=== PATIENT | female | born 1995 | race Caucasian/White ===

== ENCOUNTER 2024-08-07 14:40 | Emergency (ER) | payer MEDICAID, SELFPAY ==
[2024-08-07 14:58] VITALS: BP 156/71; PULSE 70; RESP 20; TEMP 36.9; O2SAT 98; BMI 28.3
--- NOTE | 2024-08-07 15:06 | PD.EDRME ---
Rapid Medical Screening Exam RME Arrival date/time: 08/07/24 14:40 29-year-old female presents emergency department complains of nausea vomiting abdominal pain Chief Complaint: Nausea/Vomiting/Diarrhea Time Seen by Provider: 08/07/24 14:46 Vital signs: Vital Signs Temperature 98.4 F 08/07/24 14:58 Pulse Rate 70 08/07/24 14:58 Respiratory Rate 20 08/07/24 14:58 Blood Pressure 156/71 H 08/07/24 14:58 Pulse Oximetry (%) 98 08/07/24 14:58 Oxygen Delivery Method Room Air 08/07/24 14:58
[2024-08-07] MEDS: PROMETHAZINE INJ 25 MG/ML VIAL IM (15:11)
[2024-08-07 15:24] LABS: Basophils # (Auto) 0.1 Thou/mm3 (0.0-0.2); Basophils % (Auto) 0 % (0-2.5); Eosinophils # (Auto) 0.1 Thou/mm3 (0.0-0.5); Eosinophils % (Auto) 0 % (0-10); Hematocrit 48.6 % (36.0-46.0); Immature Granulocytes % (Auto) 1 % (0-0); Immature Granulocytes Auto 0.11 Thou/mm3 (0.00-0.00); Lymphocytes # (Auto) 1.6 Thou/mm3 (1.0-4.8); Lymphocytes % (Auto) 7 % (10-50); Mean Corpuscular Hemoglobin 29.3 pg (25.0-35.0); Mean Corpuscular Volume 84 fL (80-100); Monocytes # (Auto) 0.4 Thou/mm3 (0.0-0.8); Monocytes % (Auto) 2 % (0-12); Neutrophils % (Auto) 90 % (37-80); Nucleated Red Blood Cell % 0 /100 WBC (0); Platelet Count 473 Thou/mm3 (140-440); RDW Standard Deviation 41.6 fL (36.4-46.3); White Blood Count 22.2 Thou/mm3 (3.6-11.0)
[2024-08-07 15:45] LABS: Alanine Aminotransferase 12 U/L (10-49); Albumin/Globulin Ratio 1.6 (1.2-2.2); Alkaline Phosphatase 102 U/L (46-116); Anion Gap 12 (7-16); Aspartate Amino Transferase 17 U/L (0-34); BUN/Creatinine Ratio 18 Ratio (12-20); Blood Urea Nitrogen 18 mg/dL (9-23); Calcium 10.3 mg/dL (8.3-10.6); Calcium (Corrected) 10.3 mg/dL (8.5-10.1); Chloride 106 mMol/L (98-107); Globulin 3.2 gm/dL (2.3-3.5); Glucose 184 mg/dL (74-106); Lipase 26 U/L (12-53); Osmolality,Calculated 284 (275-295); Sodium 139 mMol/L (136-145); Total Protein 8.2 gm/dL (5.7-8.2); eGFR > 60 See Note
--- NOTE | 2024-09-26 18:21 | PD.EDADULT ---
ED General RME/HPI General Chief complaint: Nausea/Vomiting/Diarrhea Stated complaint: Vomiting today, neck pain, fever Time Seen by Provider: 08/07/24 14:46 Arrival date/time: 08/07/24 14:40 RME / HPI RME / HPI narrative: 08/07/24 14:40 29-year-old female presents emergency department complains of nausea vomiting abdominal pain Related Data Home Medications ?Medication ?Instructions ?Recorded ?Confirmed quetiapine 50 mg tablet,extended 50 mg PO DAILY 03/09/21 03/09/21 release 24 hr Previous Rx's ?Medication ?Instructions ?Recorded pantoprazole 40 mg tablet,delayed 40 mg PO QDAY #14 tabs 12/16/22 release (Protonix) ibuprofen 600 mg tablet 600 mg PO Q6H #30 tabs 03/17/24 famotidine 10 mg tablet 10 mg PO QDAY #30 tabs 03/23/24 ondansetron 4 mg disintegrating 4 mg PO Q8H #14 tabs 03/23/24 tablet metoclopramide HCl 10 mg tablet 10 mg PO Q6H PRN nausea and 05/01/24 (Reglan) vomiting #30 tabs promethazine 12.5 mg rectal 12.5 mg ND Q8HR PRN nausea and 05/03/24 suppository vomiting #12 ea aluminum-mag hydroxide-simethicone 10 ml PO QID PRN Gastritis #3,000 08/08/24 200 mg-200 mg-20 mg/5 mL oral susp mL (Advanced Antacid-Antigas) famotidine 20 mg tablet (Pepcid) 20 mg PO BID Gastritis #10 tabs 08/08/24 promethazine 25 mg rectal 25 mg ND Q6H PRN nausea and 08/08/24 suppository vomiting #12 ea hydrocodone 5 mg-acetaminophen 325 1 tab PO BID PRN pain #6 tabs 09/23/24 mg tablet ibuprofen 600 mg tablet 600 mg PO Q6H #30 tabs 09/23/24 metoclopramide HCl 5 mg tablet 5 mg PO Q8H PRN nausea and 11/08/24 (Reglan) vomiting #14 tabs ondansetron 4 mg disintegrating 4 mg PO Q8H PRN nausea and 11/08/24 tablet vomiting #14 tabs promethazine 25 mg tablet 25 mg PO Q6H PRN nausea and 11/08/24 vomiting #14 tabs Allergies Allergy/AdvReac Type Severity Reaction Status Date / Time No Known Allergies Allergy Verified 09/23/24 10:04 Course Orders Category Date Time Status CBC Stat Lab 08/07/24 15:16 Completed Comprehensive Metabolic Panel Stat Lab 08/07/24 15:16 Completed Lipase Stat Lab 08/07/24 15:16 Completed Promethazine Inj [Phenergan Inj] Med 08/07/24 15:05 Discontinued 25 mg IM X1 ONE Vital Signs Vital signs: Vital Signs Temperature 98.4 F 08/07/24 14:58 Pulse Rate 70 08/07/24 14:58 Respiratory Rate 20 08/07/24 14:58 Blood Pressure 156/71 H 08/07/24 14:58 Pulse Oximetry (%) 98 08/07/24 14:58 Oxygen Delivery Method Room Air 08/07/24 14:58 MDM Medications Medication administrations:: Medication Administration History Discontinued Medications Promethazine HCl (Promethazine Inj 25 Mg/Ml Vial) 25 mg IM X1 ONE; Protocol Stop: 08/07/24 15:06 Last Admin: 08/07/24 15:11 Dose: 25 mg Documented By: DARSHAN Medical Decision Making Lab Data 08/07/24 15:16 08/07/24 15:16 Labs: Lab Results 08/07/24 Range/Units 15:16 WBC 22.2 H (3.6-11.0) Thou/mm3 RBC 5.80 H (4.00-5.20) Miln/mm3 Hgb 17.0 H (12.0-16.0) g/dL Hct 48.6 H (36.0-46.0) % MCV 84 (80-100) fL MCH 29.3 (25.0-35.0) pg MCHC 35.0 (31.0-37.0) g/dl RDW Std Deviation 41.6 (36.4-46.3) fL Plt Count 473 H (140-440) Thou/mm3 Neut % (Auto) 90 H (37-80) % Lymph % (Auto) 7 L (10-50) % [place] % (Auto) 2 (0-12) % Eos % (Auto) 0 (0-10) % Baso % (Auto) 0 (0-2.5) % Neut # (Auto) 20.0 H (1.8-7.7) Thou/mm3 Lymph # (Auto) 1.6 (1.0-4.8) Thou/mm3 [place] # (Auto) 0.4 (0.0-0.8) Thou/mm3 Eos # (Auto) 0.1 (0.0-0.5) Thou/mm3 Baso # (Auto) 0.1 (0.0-0.2) Thou/mm3 Immature Gran # (Auto) 0.11 H (0.00-0.00) Thou/mm3 Absolute Nucleated RBC 0.00 (0.00-0.00) Thou/mm3 Immature Gran % 1 H (0-0) % Nucleated RBC % 0 (0) /100 WBC Sodium 139 (136-145) mMol/L Potassium 4.0 (3.4-5.1) mMol/L Chloride 106 (98-107) mMol/L Carbon Dioxide 21.0 (20.0-31.0) mMol/L Anion Gap 12 (7-16) BUN 18 (9-23) mg/dL Creatinine 1.0 (0.6-1.3) mg/dL Estim Creat Clear Calc 80.0 (>60) mL/min eGFR > 60 (60 - ) See Note BUN/Creatinine Ratio 18 (12-20) Ratio Glucose 184 H (74-106) mg/dL Calculated Osmolality 284 (275-295) Calcium 10.3 (8.3-10.6) mg/dL Corrected Calcium 10.3 H (8.5-10.1) mg/dL Total Bilirubin 1.0 (0.3-1.2) mg/dL AST 17 (0-34) U/L ALT 12 (10-49) U/L Alkaline Phosphatase 102 (46-116) U/L Total Protein 8.2 (5.7-8.2) gm/dL Albumin 5.0 (3.5-5.0) gm/dL Globulin 3.2 (2.3-3.5) gm/dL Albumin/Globulin Ratio 1.6 (1.2-2.2) Lipase 26 (12-53) U/L Discharge Plan Plan Patient Disposition: HOME (Self Care) Prescriptions/Referrals Prescriptions/Med Rec: No Action quetiapine 50 mg tablet extended release 24 hr 50 mg PO DAILY Patient Comments: TAKE 1 TABLET BY MOUTH EVERY DAY IN THE EVENING metoclopramide HCl [Reglan] 5 mg tablet 5 mg PO Q8H PRN (Reason: nausea and vomiting) Qty: 14 0RF ondansetron 4 mg tablet,disintegrating 4 mg PO Q8H PRN (Reason: nausea and vomiting) Qty: 14 0RF promethazine 25 mg tablet 25 mg PO Q6H PRN (Reason: nausea and vomiting) Qty: 14 0RF pantoprazole [Protonix] 40 mg tablet,delayed release (DR/EC) 40 mg PO QDAY Qty: 14 0RF ibuprofen 600 mg tablet 600 mg PO Q6H Qty: 30 0RF famotidine 10 mg tablet 10 mg PO QDAY Qty: 30 0RF ondansetron 4 mg tablet,disintegrating 4 mg PO Q8H Qty: 14 0RF metoclopramide HCl [Reglan] 10 mg tablet 10 mg PO Q6H PRN (Reason: nausea and vomiting) Qty: 30 0RF promethazine 12.5 mg suppository 12.5 mg ND Q8HR PRN (Reason: nausea and vomiting) Qty: 12 0RF famotidine [Pepcid] 20 mg tablet 20 mg PO BID Qty: 10 0RF alum-mag hydroxide-simeth [Advanced Antacid-Antigas] 200-200-20 mg/5 mL suspension 10 ml PO QID PRN (Reason: Gastritis) Qty: 3000 0RF Rx Instructions: administer between meals and at bedtime promethazine 25 mg suppository 25 mg ND Q6H PRN (Reason: nausea and vomiting) Qty: 12 0RF hydrocodone-acetaminophen 5-325 mg tablet 1 tab PO BID MDD 10 PRN (Reason: pain) Qty: 6 0RF ibuprofen 600 mg tablet 600 mg PO Q6H Qty: 30 0RF Referrals: Sameer Maddox MD [Primary Care Provider] - In 1 week Patient/Caregiver Discharge Instructions Print Language: Welsh Stand Alone Forms: Tereza Award Info., Patient Portal Info Letter Discharge Intervention Interventions: Discharge Assessment Last Done: 08/07/24 16:35 Discharge Date/Time Discharge Date/Time: 08/07/24 16:35
== END 2024-08-07 16:35 | disposition home or self-care (01) ==
PROVIDERS: Nurse Practitioner Primary Care; Emergency Provider Emergency Medicine; PCP Family Medicine
DX: R11.2 Nausea with vomiting, unspecified (principal)
CPT/HCPCS: 36415; 80053; 80307; 81001; 81025; 83690; 85025; 96372; 99283; J2550

== ENCOUNTER 2024-08-08 06:47 | Emergency (ER) | payer MEDICAID, SELFPAY ==
[2024-08-08 06:48] VITALS: BMI 28.3
--- NOTE | 2024-08-08 06:52 | PD.EDRME ---
Rapid Medical Screening Exam RME Arrival date/time: 08/08/24 06:47 29-year-old female presents emergency department complaints of nausea vomiting abdominal pain Chief Complaint: Abdominal Pain
[2024-08-08 07:07] VITALS: BP 138/89; PULSE 71; RESP 19; TEMP 36.4; O2SAT 97
[2024-08-08] MEDS: PROMETHAZINE INJ 25 MG/ML VIAL IM (07:30)
[2024-08-08 08:01] LABS: Collection Type, Urine Clean Catch
[2024-08-08 08:05] LABS: Basophils % (Auto) 0 % (0-2.5); Eosinophils # (Auto) 0.1 Thou/mm3 (0.0-0.5); Eosinophils % (Auto) 0 % (0-10); Hemoglobin 16.6 g/dL (12.0-16.0); Immature Granulocytes % (Auto) 1 % (0-0); Immature Granulocytes Auto 0.14 Thou/mm3 (0.00-0.00); Lymphocytes # (Auto) 2.5 Thou/mm3 (1.0-4.8); Lymphocytes % (Auto) 12 % (10-50); Mean Corpuscular HGB Conc 35.3 g/dl (31.0-37.0); Mean Corpuscular Hemoglobin 29.3 pg (25.0-35.0); Mean Corpuscular Volume 83 fL (80-100); Monocytes # (Auto) 0.9 Thou/mm3 (0.0-0.8); Monocytes % (Auto) 5 % (0-12); Neutrophils # (Auto) 16.5 Thou/mm3 (1.8-7.7); Neutrophils % (Auto) 82 % (37-80); Nucleated Red Blood Cell % 0 /100 WBC (0); Platelet Count 484 Thou/mm3 (140-440); RDW Standard Deviation 41.5 fL (36.4-46.3); Red Blood Count 5.67 Miln/mm3 (4.00-5.20); White Blood Count 20.1 Thou/mm3 (3.6-11.0)
[2024-08-08 08:22] LABS: Amorphous Crystals,Urine Present (Absent); Bilirubin,Urine Negative (Negative); Blood,Urine 2+ (Negative); Clarity,Urine Turbid (Clear/Hazy); Color,Urine Yellow (Lt Yel-Yel); Culture Indicated,Urine Not Indicated; Glucose, Urine Negative (Negative); Ketones,Urine 1+ (Negative); Leukocyte Esterase,Urine Negative (Negative); Nitrite,Urine Negative (Negative); Protein,Urine 1+ (Neg - Trace); RBC,Urine 4 /hpf (0-3); Specific Gravity,Urine 1.031 (1.001-1.035); Squamous Epithelial Cell,Urine 8 /hpf (0-5); Urobilinogen,Urine Negative mg/dL (0.0-1.0); WBC,Urine 2 /hpf (0-5)
[2024-08-08 08:26] LABS: HCG Qualitative,Urine Negative
[2024-08-08 08:28] LABS: Alanine Aminotransferase 10 U/L (10-49); Albumin, Serum 5.3 gm/dL (3.5-5.0); Albumin/Globulin Ratio 1.7 (1.2-2.2); Alkaline Phosphatase 96 U/L (46-116); Anion Gap 11 (7-16); Aspartate Amino Transferase 18 U/L (0-34); BUN/Creatinine Ratio 17 Ratio (12-20); Bilirubin,Total 0.7 mg/dL (0.3-1.2); Blood Urea Nitrogen 17 mg/dL (9-23); Calcium 9.7 mg/dL (8.3-10.6); Calcium (Corrected) 9.7 mg/dL (8.5-10.1); Carbon Dioxide 25.6 mMol/L (20.0-31.0); Chloride 100 mMol/L (98-107); Globulin 3.2 gm/dL (2.3-3.5); Glucose 119 mg/dL (74-106); Lipase 29 U/L (12-53); Osmolality,Calculated 276 (275-295); Potassium 3.1 mMol/L (3.4-5.1); Sodium 137 mMol/L (136-145); Total Protein 8.5 gm/dL (5.7-8.2); eGFR > 60 See Note
[2024-08-08 08:29] LABS: Amphetamine/Methamp Scrn,U Negative (Negative); Barbiturate Screen,Urine Negative (Negative); Benzodiazepines Screen,Urine Negative (Negative); Benzoylecgonine Screen, Ur Negative (Negative); Fentanyl Screen,Urine Negative (Negative); Opiate Screen,Urine Positive (Negative); THC Screen,Urine Positive (Negative)
[2024-08-08 09:00] LABS: HCG,Qualitative Serum Negative
[2024-08-08] MEDS: SODIUM CHLORIDE 0.9% 1000 ML 1,000 ML 999 ML IV (09:54)
[2024-08-08 10:48] VITALS: BP 118/63; PULSE 80; RESP 16; TEMP 36.7; O2SAT 98
--- NOTE | 2024-08-08 10:55 | EDNOTE_ITS ---
ED Abdominal Pain RME/HPI General Chief Complaint: Abdominal Pain Stated complaint: I HAVE GASTRITIS FLARE UP Arrival date/time: 08/08/24 06:47 Limitations: no limitations RME / HPI RME / HPI narrative: 08/08/24 06:47 29-year-old female presents emergency department complaints of nausea vomiting abdominal pain DR. MEHRDAD MARTINEZ ED EVALUATION: 29 year old female with history of gastritis, H.pylori (treated 6 months ago), chronic pain on Methadone presents to the ED for my gastritis is flaring up . States the pain is mostly in the epigastric region, described as aching in sensation, rating as moderate-severe. Accompanied by nausea and vomiting. States at home pain is minimally improved with hot compresses, hot showers/baths, otherwise no other known modifying factors. Reportedly had been evaluated here twice before for similar pain and previously diagnosed with gastritis. Denies fevers, chills, chest pain, cough, diarrhea, constipation, or urinary symptoms. Patient additionally mentioned she has had increase in stress recently and unsure if that is contributing to her symptoms today. Patient admits to smoking marijuana daily x10 years. Related Data Home Medications ?Medication ?Instructions ?Recorded ?Confirmed quetiapine 50 mg tablet,extended 50 mg PO DAILY 03/09/21 03/09/21 release 24 hr Previous Rx's ?Medication ?Instructions ?Recorded pantoprazole 40 mg tablet,delayed 40 mg PO QDAY #14 tabs 12/16/22 release (Protonix) ibuprofen 600 mg tablet 600 mg PO Q6H #30 tabs 03/17/24 famotidine 10 mg tablet 10 mg PO QDAY #30 tabs 03/23/24 ondansetron 4 mg disintegrating 4 mg PO Q8H #14 tabs 03/23/24 tablet metoclopramide HCl 10 mg tablet 10 mg PO Q6H PRN nausea and 05/01/24 (Reglan) vomiting #30 tabs promethazine 12.5 mg rectal 12.5 mg [place] Q8HR PRN nausea and 05/03/24 suppository vomiting #12 ea aluminum-mag hydroxide-simethicone 10 ml PO QID PRN Gastritis #3,000 08/08/24 200 mg-200 mg-20 mg/5 mL oral susp mL (Advanced Antacid-Antigas) famotidine 20 mg tablet (Pepcid) 20 mg PO BID Gastritis #10 tabs 08/08/24 promethazine 25 mg rectal 25 mg [place] Q6H PRN nausea and 08/08/24 suppository vomiting #12 ea sucralfate 1 gram tablet (Carafate) 1 g PO BID Gastritis 10 days #20 08/08/24 tabs Allergies Allergy/AdvReac Type Severity Reaction Status Date / Time No Known Allergies Allergy Verified 08/08/24 06:50 Review of Systems Review of Systems Narrative Review of Systems: GEN: No fever, no chills, no weight loss EYES: No discharge, no visual changes, no pain HEENT: No ear pain, no congestion, no sore throat PULM: No shortness of breath, no cough, no congestion CV: No chest pain, no dyspnea on exertion, no palpitations GI: +nausea, +vomiting, no diarrhea, +pain, no constipation : No frequency, no urgency, no dysuria MUSC/SKEL: No joint pain, no back pain SKIN: No rash NEURO: No weakness, no headache Past Medical History Past Medical History GENITOURINARY: Positive Genitourinary Disorders MUSCULOSKELETAL: Positive Musculoskeletal Disorders PSYCHO/SOCIAL: Positive Depression, Anxiety and Depression Family History FAMILY HISTORY: Positive Family Psychiatric Problems, Family Respiratory Disorders and Family Cancer Surgical History SURGICAL: Negative Abdominal Surgery Social History SMOKING STATUS: Current every day smoker ED Exam General Limitations: Present no limitations General appearance: Present alert and in no apparent distress Head Head exam: Present atraumatic, normocephalic and normal inspection Eye Eye exam: Present normal appearance, PERRL and EOMI ENT ENT exam: Present normal exam, normal oropharynx and mucous membranes moist Neck Neck exam: Present normal inspection, full ROM and trachea midline Chest Chest inspection: Present normal inspection and symmetric chest wall rise Respiratory Respiratory exam: Present normal lung sounds bilaterally Cardiovascular Cardiovascular exam: Present regular rate, normal rhythm and normal heart sounds Abdominal Exam Abdominal exam: Present soft and normal bowel sounds Extremities Exam Extremities exam: Present normal inspection and full ROM Back Exam Back exam: Present normal inspection and full ROM Neurological Exam Neurological exam: Present alert, oriented X3 and CN II-XII intact Psychiatric Psychiatric exam: Present normal affect and normal mood Skin Skin exam: Present warm, dry, intact and normal color Course Quality Measures none Orders Category Date Time Status CT Screening NOW Care 08/08/24 09:28 Completed Insert IV NOW Care 08/08/24 09:27 Completed CBC Stat Lab 08/08/24 07:35 Completed Comprehensive Metabolic Panel Stat Lab 08/08/24 07:35 Completed Drug Screen,Urine Stat Lab 08/08/24 07:19 Completed HCG Qualitative,Urine Stat Lab 08/08/24 07:19 Completed HCG,Qualitative Serum Stat Lab 08/08/24 07:35 Completed Lipase Stat Lab 08/08/24 07:35 Completed UA, C/S IF [Urinalysis, C/S if Indicated] Stat Lab 08/08/24 07:19 Completed Famotidine Inj [Pepcid Inj] Med 08/08/24 10:27 Discontinued 20 mg IVP X1 ONE Pantoprazole Inj [Protonix Inj] Med 08/08/24 10:27 Discontinued 40 mg IV X1 ONE Promethazine Inj [Phenergan Inj] Med 08/08/24 06:51 Discontinued 25 mg IM X1 ONE Sodium Chloride 0.9% 1000 ml [Ns] 1,000 ml Med 08/08/24 09:27 Discontinued IV 999 mls/hr Sucralfate [Carafate] Med 08/08/24 10:27 Discontinued 1 gm PO X1 ONE mg Hyd/Al Hyd/Balwinder Susp [Maalox Susp] Med 08/08/24 10:27 Discontinued 30 ml PO X1 ONE Reevaluation(s) Reevaluation #1: Patient remains clinically stable throughout the emergency department visit. We reviewed all the results, analysis, and treatment plans. Patient is amenable to discharge. Strict return precautions were outlined. Patient was discharged in stable condition. Time: 10:25 Vital Signs Vital signs: Vital Signs Temperature 97.6 F 08/08/24 07:07 Pulse Rate 71 08/08/24 07:07 Respiratory Rate 19 08/08/24 07:07 Blood Pressure 138/89 H 08/08/24 07:07 Pulse Oximetry (%) 97 08/08/24 07:07 Oxygen Delivery Method Room Air 08/08/24 07:07 Pulse ox is 97% on room air which is adequate. Abdominal Pain MDM MDM Narrative MDM Narrative:: Kristin Hayes am scribing for and in the presence of Dr. Goyal. Patient data External records reviewed:: [facility] [place] previous records (I reviewed ED visit on 05/03/2024) Clinical information provided by:: patient Social determinants that could affect healthcare access:: substance use (Marijuana ) Patient has the following chronic illnesses:: Gastritis H. Pylori 6 months ago How is presenting disease/condition affected by chronic disease/condition?: exacerbated by Evaluation data The following diagnostics were reviewed and interpreted by me:: lab results Lab and/or radiology exams considered but not ordered:: None Interpretation Summary: WBC 21 today, 22 yesterday 08/07/2024 Medications / Prescriptions Medications or Prescriptions considered but not ordered:: None Medication administrations:: Medication Administration History Discontinued Medications Al Hydrox/Mg Hydrox/Simethicone (Mg Hyd/Al Hyd/Balwinder (Maalox Reg) Susp 30 Ml Udc) 30 ml PO X1 ONE Stop: 08/08/24 10:28 Last Admin: 08/08/24 11:35 Dose: 30 ml Documented By: JAKOB Famotidine (Famotidine Inj 10 Mg/Ml Vial 2 Ml) 20 mg IVP X1 ONE Stop: 08/08/24 10:28 Last Admin: 08/08/24 11:34 Dose: 20 mg Documented By: JAKOB Sodium Chloride (Ns) 1,000 mls @ 999 mls/hr IV .Q1H1M ONE Stop: 08/08/24 10:27 Last Infusion: 08/08/24 12:01 Dose: Infused Documented By: Admin: 08/08/24 09:54 Dose: 999 mls/hr Documented By: JAKOB Pantoprazole Sodium (Pantoprazole Inj 40 Mg Vial) 40 mg IV X1 ONE Stop: 08/08/24 10:28 Last Admin: 08/08/24 11:35 Dose: 40 mg Documented By: JAKOB Promethazine HCl (Promethazine Inj 25 Mg/Ml Vial) 25 mg IM X1 ONE; Protocol Stop: 08/08/24 06:52 Last Admin: 08/08/24 07:30 Dose: 25 mg Documented By: DARSHAN Sucralfate (Sucralfate 1 Gm Tablet) 1 gm PO X1 ONE Stop: 08/08/24 10:28 Last Admin: 08/08/24 12:00 Dose: Not Given Documented By: TM Non-Admin Reason: Patient Refused See above Consultations Consultation(s) initiated? (list below): No Diagnosis Differential diagnosis abdominal pain: abdominal pain, gastroenteritis and other (Gastritis) Most likely diagnosis given after review of the tests above:: Gastritis Admission Indicated Admission indicated?: not indicated Admission Request Was there a request for admission?: No Disposition Plan Disposition Plan: Discharge Discharge Attestation Discharge Attestation: The patient and all family members were given an opportunity to ask questions and understood the discharge instructions. Discharge instructions specifically effects, indications for sooner follow up or return to the emergency department, and the expected course of current diagnosis. Patient condition: Stable Discharge Plan Plan Patient Disposition: HOME (Self Care) Disposition Comment: Gastritis Patient condition on transfer: Stable Prescriptions/Referrals Prescriptions/Med Rec: New famotidine [Pepcid] 20 mg tablet 20 mg PO BID Qty: 10 0RF sucralfate [Carafate] 1 gram tablet 1 g PO BID 10 Days Qty: 20 0RF alum-mag hydroxide-simeth [Advanced Antacid-Antigas] 200-200-20 mg/5 mL suspension 10 ml PO QID PRN (Reason: Gastritis) Qty: 3000 0RF Rx Instructions: administer between meals and at bedtime promethazine 25 mg suppository 25 mg [place] Q6H PRN (Reason: nausea and vomiting) Qty: 12 0RF No Action quetiapine 50 mg tablet extended release 24 hr 50 mg PO DAILY Patient Comments: TAKE 1 TABLET BY MOUTH EVERY DAY IN THE EVENING pantoprazole [Protonix] 40 mg tablet,delayed release (DR/EC) 40 mg PO QDAY Qty: 14 0RF ibuprofen 600 mg tablet 600 mg PO Q6H Qty: 30 0RF famotidine 10 mg tablet 10 mg PO QDAY Qty: 30 0RF ondansetron 4 mg tablet,disintegrating 4 mg PO Q8H Qty: 14 0RF metoclopramide HCl [Reglan] 10 mg tablet 10 mg PO Q6H PRN (Reason: nausea and vomiting) Qty: 30 0RF promethazine 12.5 mg suppository 12.5 mg [place] Q8HR PRN (Reason: nausea and vomiting) Qty: 12 0RF Referrals: Sameer Maddox MD [Primary Care Provider] - In 1 week Demar Ross MD [Physician] - In 1 week Problem List Clinical Impression: Gastritis Patient/Caregiver Discharge Instructions Discharge Activity: activity as tolerated Diet Instructions: A gastritis diet involves eating bland, non-acidic foods that are low in sugar, salt, and saturated fat. You should avoid foods that are: spicy, acidic, fried, fatty, processed, caffeinated, sugary, and deep-fried. Here are some foods you can eat on a gastritis diet: Fruits: Bananas are well-tolerated and can soothe the stomach lining. Avoid acidic fruits like shukri, oranges, and pineapple. Vegetables: Cooked vegetables are easier to digest. Lean meats: Chicken and fish are good options. Whole grains: Brown bread, brown rice, and whole grain pasta are all good choices. Dairy: Skim milk and plain yogurt are good options. Herbs and spices: Natural seasonings like garlic, onion, parsley, coriander, and mustard are good options. You should also consider: Avoiding or quitting tobacco use, Avoiding or limiting alcohol intake, Avoiding the long-term use of NSAIDs, and Managing stress. The duration of a gastritis diet depends on the frequency and severity of symptoms, as well as the underlying cause of inflammation. A doctor can provide guidance and recommendations suited to your lifestyle and health. Education Materials: Treating Gastritis, Anatomy of the Digestive System, ED Gastritis (Adult), ED PEPTIC ULCER vs GASTRITIS Additional Instructions: Please follow-up with Dr. Ross within the next week or so. Just call his office and make an appointment. Dr. Ross is a joint machine operator which is a specialist of the stomach. Please return to the ER for any worsening or any further medical problems Otherwise follow-up with your primary care doctor within the next few days Take all medications as directed Print Language: Macedonian Stand Alone Forms: [employer] Award Info., Patient Portal Info Letter
[2024-08-08] MEDS: FAMOTIDINE INJ 10 MG/ML VIAL 2 ML 20 MG IVP (11:34)
[2024-08-08] MEDS: MG HYD/AL HYD/SIME (Maalox Reg) SUSP 30 ML UDC PO (11:35)
[2024-08-08] MEDS: PANTOPRAZOLE INJ 40 MG VIAL IV (11:35)
--- NOTE | 2024-08-08 12:00 | PC.NURSE ---
request med from pharmacy, pt did not want to wait any longer, med was ordered to her pharmacy, pt states she would just rather got get it from her pharmacy, provider aware and in agreement.
== END 2024-08-08 11:59 | disposition home or self-care (01) ==
PROVIDERS: Nurse Practitioner Primary Care; Emergency Provider Emergency Medicine; PCP Family Medicine
DX: K29.70 Gastritis, unspecified, without bleeding (principal)
CPT/HCPCS: 36415; 80053; 80307; 81001; 81025; 83690; 84703; 85025; 96372; 96374; 96375; 99284; J2470; J2550; J3490; J7030; A9270

== ENCOUNTER 2024-09-23 10:02 | Emergency (ER) | payer MEDICAID, SELFPAY ==
[2024-09-23 10:40] VITALS: BP 137/92; PULSE 100; RESP 12; TEMP 36.9; O2SAT 95; BMI 25.4
--- NOTE | 2024-09-23 10:42 | EDNOTE_ITS ---
ED Dental RME/HPI General Chief complaint: Dental/Oral/Throat Stated complaint: ABCESS TO LEFT TEETH x 1 WEEK Time Seen by Provider: 09/23/24 10:04 Arrival date/time: 09/23/24 10:02 29-year-old female presents emergency department today complains of left lower dental pain patient reports recent dental procedure Limitations: no limitations Related Data Home Medications ?Medication ?Instructions ?Recorded ?Confirmed quetiapine 50 mg tablet,extended 50 mg PO DAILY 03/09/21 03/09/21 release 24 hr Previous Rx's ?Medication ?Instructions ?Recorded pantoprazole 40 mg tablet,delayed 40 mg PO QDAY #14 tabs 12/16/22 release (Protonix) ibuprofen 600 mg tablet 600 mg PO Q6H #30 tabs 03/17/24 famotidine 10 mg tablet 10 mg PO QDAY #30 tabs 03/23/24 ondansetron 4 mg disintegrating 4 mg PO Q8H #14 tabs 03/23/24 tablet metoclopramide HCl 10 mg tablet 10 mg PO Q6H PRN nausea and 05/01/24 (Reglan) vomiting #30 tabs promethazine 12.5 mg rectal 12.5 mg [place] Q8HR PRN nausea and 05/03/24 suppository vomiting #12 ea aluminum-mag hydroxide-simethicone 10 ml PO QID PRN Gastritis #3,000 08/08/24 200 mg-200 mg-20 mg/5 mL oral susp mL (Advanced Antacid-Antigas) famotidine 20 mg tablet (Pepcid) 20 mg PO BID Gastritis #10 tabs 08/08/24 promethazine 25 mg rectal 25 mg [place] Q6H PRN nausea and 08/08/24 suppository vomiting #12 ea clindamycin HCl 300 mg capsule 300 mg PO TID 7 days #21 caps 09/23/24 hydrocodone 5 mg-acetaminophen 325 1 tab PO BID PRN pain #6 tabs 09/23/24 mg tablet ibuprofen 600 mg tablet 600 mg PO Q6H #30 tabs 09/23/24 Allergies Allergy/AdvReac Type Severity Reaction Status Date / Time No Known Allergies Allergy Verified 09/23/24 10:04 Review of Systems Review of Systems Systems Reviewed: All systems reviewed, normal except as documented Constitutional Constitutional: Reports system reviewed and no additional complaints, except as documented, Denies fever(s) and Denies headache(s) Eyes Eyes: Reports system reviewed and no additional complaints, except as documented and Denies blurry vision ENT Ears, Nose, Mouth, and Throat: Reports system reviewed and no additional complaints, except as documented, Reports dental pain, Reports facial pain, Denies headache(s), Denies nasal congestion and Denies nasal discharge Cardiovascular Cardiovascular: Reports system reviewed and no additional complaints, except as documented, Denies chest pain and Denies dyspnea Respiratory Respiratory: Reports system reviewed and no additional complaints, except as documented, Denies chest congestion, Denies cough and Denies dyspnea Gastrointestinal Gastrointestinal: Reports system reviewed and no additional complaints, except as documented and Denies abdominal pain Integumentary/Breasts Skin/Breast: Reports system reviewed and no additional complaints, except as documented and Denies rash Neurologic Neurologic: Reports system reviewed and no additional complaints, except as documented, Reports as per HPI and Denies headache(s) Past Medical History Past Medical History NEUROLOGIC: Negative Neurological Disorders CARDIAC: Negative Cardiac Disorders or Congestive Heart Failure RESPIRATORY: Negative Chronic Obstructive Pulmonary Disease (COPD) or Asthma GASTROINTESTINAL: Negative Gastrointestinal Disorders GENITOURINARY: Positive Genitourinary Disorders; Negative Renal Disease REPRODUCTIVE: Negative Breast Cancer MUSCULOSKELETAL: Positive Musculoskeletal Disorders ENDOCRINE: Negative Endocrine Disorders, Diabetes Mellitus Type 1 or Diabetes Mellitus Type 2 HEMATOLOGIC: Negative Blood Disorders or Sickle Cell Disease PSYCHO/SOCIAL: Positive Depression, Anxiety and Depression OTHER HISTORY: Negative Autoimmune Disease, Blood Transfusions, Anesthesia Reactions, Organ Transplant, MRSA, Clostridium Difficile or Breast Cancer Family History FAMILY HISTORY: Positive Family Psychiatric Problems, Family Respiratory Disorders and Family Cancer; Negative Family Cardiac Disorders, Family Gastrointestinal Problems, Family Surgery or Family Anesthesia Reaction Surgical History SURGICAL: Negative Cardiac Surgery, Endocrine Surgery, Ear Surgery, Abdominal Surgery, Nephrectomy, Joint Replacement, Neurologic Surgery, Section or Organ Transplant Social History SMOKING STATUS: Heavy (> 1 pack/day) ED Exam General Limitations: Present no limitations General appearance: Present alert and in no apparent distress Head Head exam: Present atraumatic, normocephalic and normal inspection Eye Eye exam: Present normal appearance, PERRL and EOMI; Absent conjunctival injection ENT ENT exam: Present normal oropharynx, mucous membranes moist and other (Left- sided jaw pain) Neck Neck exam: Present normal inspection, full ROM and trachea midline Chest Chest inspection: Present normal inspection and symmetric chest wall rise Respiratory Respiratory exam: Present normal lung sounds bilaterally Cardiovascular Cardiovascular exam: Present regular rate, normal rhythm and normal heart sounds Abdominal Exam Abdominal exam: Present soft and normal bowel sounds; Absent distention, tenderness, guarding, rebound or rigidity Extremities Exam Extremities exam: Present normal inspection and full ROM Back Exam Back exam: Present normal inspection and full ROM Neurological Exam Neurological exam: Present alert, oriented X3, CN II-XII intact, normal gait and reflexes normal; Absent motor sensory deficit Psychiatric Psychiatric exam: Present normal affect and normal mood Skin Skin exam: Present warm, dry, intact and normal color Course Quality Measures none Orders Category Date Time Status Ibuprofen Tab [Motrin Tab] Med 09/23/24 10:40 Discontinued 600 mg PO X1 ONE Lidocaine 1% 20 ml [Xylocaine 1% 20 ML] Med 09/23/24 10:40 Discontinued 2.1 ml INFL X1 ONE cefTRIAXone [Rocephin] Med 09/23/24 10:40 Discontinued 1,000 mg IM X1 ONE Vital Signs Vital signs: Vital Signs Temperature 98.5 F 09/23/24 10:40 Pulse Rate 100 09/23/24 10:40 Respiratory Rate 12 09/23/24 10:40 Blood Pressure 137/92 H 09/23/24 10:40 Pulse Oximetry (%) 95 09/23/24 10:40 Oxygen Delivery Method Room Air 09/23/24 10:40 O2 saturation 95% room air within normal limits Dental / Oral MDM Narrative MDM Narrative:: 29-year-old female presents emergency department today complains of left lower dental pain patient reports recent dental procedure On exam patient does not appear ill or toxic patient's not appear in acute distress On exam patient does have left lower jaw swelling no difficulty swallowing or breathing Patient given antibiotics here discharged home with antibiotics and pain medication Patient instructed to follow-up with dentist as soon as possible Patient data External records reviewed:: [facility] previous records Clinical information provided by:: patient Social determinants that could affect healthcare access:: none Patient has the following chronic illnesses:: None How is presenting disease/condition affected by chronic disease/condition?: no chronic disease Evaluation data The following diagnostics were reviewed and interpreted by me:: other (specify) (N/A) Lab and/or radiology exams considered but not ordered:: Consider not order Interpretation Summary: N/A Medications / Prescriptions Medications or Prescriptions considered but not ordered:: Given Medication administrations:: Medication Administration History Discontinued Medications Ceftriaxone Sodium (Ceftriaxone Sod Inj 1,000 Mg Vial) 1,000 mg IM X1 ONE Stop: 09/23/24 10:41 Last Admin: 09/23/24 10:52 Dose: 1,000 mg Documented By: DARSHAN Ibuprofen (Ibuprofen Tab 600 Mg Tablet) 600 mg PO X1 ONE Stop: 09/23/24 10:41 Last Admin: 09/23/24 10:50 Dose: 600 mg Documented By: DARSHAN Lidocaine HCl (Lidocaine Hcl 1% 20 Ml Vial) 2.1 ml INFL X1 ONE Stop: 09/23/24 10:41 Last Admin: 09/23/24 10:51 Dose: 2.1 ml Documented By: DARSHAN Given Consultations Consultation(s) initiated? (list below): No Diagnosis Dental Differential Diagnosis: gingival abscess, dental caries, toothache and dental abscess Most likely diagnosis given after review of the tests above:: Dental abscess Admission Indicated Admission indicated?: not indicated Admission Request Was there a request for admission?: No Disposition Plan Disposition Plan: Discharge Discharge Attestation Discharge Attestation: The patient and all family members were given an opportunity to ask questions and understood the discharge instructions. Discharge instructions specifically effects, indications for sooner follow up or return to the emergency department, and the expected course of current diagnosis. Patient condition: Stable Discharge Plan Plan Patient Disposition: HOME (Self Care) Disposition Comment: Stable Prescriptions/Referrals Prescriptions/Med Rec: New clindamycin HCl 300 mg capsule 300 mg PO TID 7 Days Qty: 21 0RF hydrocodone-acetaminophen 5-325 mg tablet 1 tab PO BID MDD 10 PRN (Reason: pain) Qty: 6 0RF ibuprofen 600 mg tablet 600 mg PO Q6H Qty: 30 0RF No Action quetiapine 50 mg tablet extended release 24 hr 50 mg PO DAILY Patient Comments: TAKE 1 TABLET BY MOUTH EVERY DAY IN THE EVENING pantoprazole [Protonix] 40 mg tablet,delayed release (DR/EC) 40 mg PO QDAY Qty: 14 0RF ibuprofen 600 mg tablet 600 mg PO Q6H Qty: 30 0RF famotidine 10 mg tablet 10 mg PO QDAY Qty: 30 0RF ondansetron 4 mg tablet,disintegrating 4 mg PO Q8H Qty: 14 0RF metoclopramide HCl [Reglan] 10 mg tablet 10 mg PO Q6H PRN (Reason: nausea and vomiting) Qty: 30 0RF promethazine 12.5 mg suppository 12.5 mg [place] Q8HR PRN (Reason: nausea and vomiting) Qty: 12 0RF famotidine [Pepcid] 20 mg tablet 20 mg PO BID Qty: 10 0RF alum-mag hydroxide-simeth [Advanced Antacid-Antigas] 200-200-20 mg/5 mL suspension 10 ml PO QID PRN (Reason: Gastritis) Qty: 3000 0RF Rx Instructions: administer between meals and at bedtime promethazine 25 mg suppository 25 mg [place] Q6H PRN (Reason: nausea and vomiting) Qty: 12 0RF Problem List Clinical Impression: Abscess, dental Patient/Caregiver Discharge Instructions Education Materials: ED Tooth Abscess Additional Instructions: Please follow up with your dentist as discussed for worsening symptoms return immediately Print Language: Italian Stand Alone Forms: [employer] Award Info., Patient Portal Info Letter PA/HEEL NAILING 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
[2024-09-23] MEDS: IBUPROFEN TAB 600 MG TABLET PO (10:50)
[2024-09-23] MEDS: LIDOCAINE HCL 1% 20 ML VIAL 2.1 ML INFL (10:51)
[2024-09-23] MEDS: cefTRIAXone SOD INJ 1,000 MG VIAL 1000 MG IM (10:52)
== END 2024-09-23 11:00 | disposition home or self-care (01) ==
LOC: SERX 11:00
PROVIDERS: Emergency Provider Emergency Medicine; PCP Family Medicine
DX: K04.7 Periapical abscess without sinus (principal)
CPT/HCPCS: 96372; 99283; J0696; J3490; A9270

== ENCOUNTER 2024-11-07 17:09 | Emergency (ER) | payer MEDICAID, SELFPAY ==
[2024-11-07] VITALS (12 sets, daily range): BP systolic 94–144; BP diastolic 53–96; PULSE 73–109; RESP 15–22; TEMP 36.6–37.3; O2SAT 92–849; BMI 26.2
[2024-11-07] MEDS: ONDANSETRON INJ 2 MG/ML INJ 2 ML 4 MG IV (18:20)
[2024-11-07] MEDS: LORazepam 2 MG/ML VIAL 1 MG IVP (18:21)
--- NOTE | 2024-11-07 18:26 | EDNOTE_ITS ---
ED General RME/HPI General Chief complaint: Abdominal Pain Stated complaint: ABD PAIN Time Seen by Provider: 11/07/24 18:16 Arrival date/time: 11/07/24 17:09 RME / HPI RME / HPI narrative: Patient is 29 years old female with past medical history of marijuana use disorder, gastritis and chronic pain on methadone presented to the ED complaining of nausea, vomiting and abdominal pain. She reports she started vomiting today morning and was progressively worsening. She also developed epigastric abdominal pain. She smoked marijuana yesterday evening. Patient was previously seen in the ED with similar complaint. She was previously treated for Helicobacter. She reports due to vomiting she was not able to take her home methadone as prescribed. She also reports diarrhea today. She denies any chest pain, shortness of breath, melena or blood per rectum, bloody emesis. Related Data Home Medications ?Medication ?Instructions ?Recorded ?Confirmed quetiapine 50 mg tablet,extended 50 mg PO DAILY 03/09/21 release 24 hr Previous Rx's ?Medication ?Instructions ?Recorded pantoprazole 40 mg tablet,delayed 40 mg PO QDAY #14 ta bs 12/16/22 release (Protonix) ibuprofen 600 mg tablet 600 mg PO Q6H #30 tabs 03/17 famotidine 10 mg tablet 10 mg PO QDAY #30 tabs 03/23 ondansetron 4 mg disintegrating 4 mg PO Q8H #14 tabs 0 03/23/24 tablet metoclopramide HCl 10 mg tablet 10 mg PO Q6H PRN nause a and 05/01/24 (Reglan) vomiting #30 tabs promethazine 12.5 mg rectal 12.5 mg WA Q8HR PRN nausea and 05/03/24 suppository vomiting #12 ea aluminum-mag hydroxide-simethicone 10 ml PO QID PRN Ga stritis #3,000 08/08/24 200 mg-200 mg-20 mg/5 mL oral susp mL (Advanced Antacid-Antigas) famotidine 20 mg tablet (Pepcid) 20 mg PO BID Gastriti s #10 tabs 08/08/24 promethazine 25 mg rectal 25 mg WA Q6H PRN nausea and 08/08/24 suppository vomiting #12 ea hydrocodone 5 mg-acetaminophen 325 1 tab PO BID PRN pa in #6 tabs 01/21/25 mg tablet ibuprofen 600 mg tablet 600 mg PO Q6H #30 tabs 09/23 metoclopramide HCl 5 mg tablet 5 mg PO Q8H PRN nausea and 11/08/24 (Reglan) vomiting #14 tabs ondansetron 4 mg disintegrating 4 mg PO Q8H PRN nausea and 11/08/24 tablet vomiting #14 tabs promethazine 25 mg tablet 25 mg PO Q6H PRN nausea and 11/08/24 vomiting #14 tabs Allergies Allergy/AdvReac Type Severity Reaction Status Date / Time No Known Allergies Allergy Verified 09/23/24 10:04 Review of Systems Review of Systems Systems Reviewed: All systems reviewed, normal except as documented ED Exam Narrative Physical exam: Gen: Well-developed and well-nourished female. HEENT: NCAT, PERRLA, EOMI, MMM, anicteric conjunctivae. CVS: normal S1 and S2. RRR. No M/R/G. Resp: CTA B/L. No rhonchi, rales, crackles or wheezing. Abd: soft, tender in epigastrium, non-distended. BS+ in all 4 quadrants. MSK: Good ROM in BUE & BLE. No edema or rash. Neuro: CN II-XII grossly intact. Strength 5/5 in BUE & BLE. Alert and oriented x3. Psych: Severely anxious. Course Quality Measures none Orders Category Date Time Status EKG (ED ONLY) *Do not use* NOW Care 11/07/24 19:48 Completed IV [Insert IV] NOW Care 11/07/24 18:10 Active Straight [In and Out Catheter] X1 Care 11/07/24 18:[address] abdomen pelvis wo con Stat Exams 11/07/24 19:48 Completed CXRP [XR chest 1V portable] Stat Exams 11/07/24 19:46 Completed EKG (ED Only) Stat Exams 11/07/24 19:48 Draft Alcohol, Blood Medical Stat Lab 11/07/24 18:30 Completed CBC Stat Lab 11/07/24 18:30 Completed CMP [Comprehensive Metabolic Panel] Stat Lab 11/07/24 18:30 Completed Drug Screen,Urine Stat Lab 11/07/24 21:57 Completed HCG Qualitative,Urine Stat Lab 11/07/24 21:57 Completed HCG,Qualitative Serum Stat Lab 11/07/24 21:42 Completed Magnesium Stat Lab 11/07/24 18:30 Completed Urinalysis Stat Lab 11/07/24 21:57 Completed DiphenhydrAMINE INJ [Benadryl Inj] Med 11/07/24 18:25 Discontinued 50 mg IV X1 ONE Ketorolac Inj [Toradol Inj] Med 11/07/24 19:31 Discontinued 15 mg IVP X1 ONE LORazepam [Ativan Inj] Med 11/07/24 18:06 Discontinued 1 mg IVP X1 ONE LORazepam [Ativan Inj] Med 11/07/24 20:31 Discontinued 2 mg IVP X1 ONE Magnesium Sulfate 2 GM Ivpb [Magnesium Sulfate Ivpb] Med 11/07/24 19:33 Discontinued 2 gm in 50 ml IV X1 Methadone Med 11/07/24 19:52 Discontinued 40 mg PO X1 ONE Metoclopramide Inj [Reglan Inj] Med 11/07/24 20:31 Discontinued 5 mg IVP X1 ONE Ondansetron Inj [Zofran Inj] Med 11/07/24 18:06 Discontinued 4 mg IV X1 ONE Scopolamine [Transderm-Scop Patch] Med 11/07/24 18:25 Discontinued 1 mg TOP X1 ONE Sodium Chloride 0.9% 1000 ml [Ns] 1,000 ml Med 11/07/24 18:53 Discontinued IV 999 mls/hr Sodium Chloride 0.9% 500 ml [Ns] 500 ml Med 11/07/24 19:32 Discontinued IV 125 mls/hr cloNIDine HCL [Catapres] Med 11/07/24 18:25 Discontinued 0.1 mg PO X1 ONE Vital Signs Vital signs: Vital Signs Temperature 97.9 F 11/07/24 17:11 Pulse Rate 109 H 11/07/24 17:11 Respiratory Rate 20 11/07/24 17:11 Blood Pressure 144/81 H 11/07/24 17:11 Pulse Oximetry (%) 98 11/07/24 17:11 Oxygen Delivery Method Room Air 11/07/24 17:11 Procedures -ED EKG Interpretation Sinus rhythm: Date of EK11/07/24 Time of EK:24 Rate: 79 Interpretation: Reviewed by me EKG Impression: Normal sinus rhythm MDM Patient data External records reviewed:: [facility] previous records Clinical information provided by:: patient and family Social determinants that could affect healthcare access:: substance use Patient has the following chronic illnesses:: marijuana use disorder, gastritis and chronic pain on methadone How is presenting disease/condition affected by chronic disease/condition?: c aused by Evaluation data The following diagnostics were reviewed and interpreted by me:: lab results, radiology exam(s) and EKG tracing(s) Lab and/or radiology exams considered but not ordered:: CT chest, FOBT Interpretation Summary: Leukocytosis, dehydration, hypomagnesemia, liver lesion, non-obstructive renal calculi. Medications Medications considered but not ordered:: Antibiotics Medication administrations:: Medication Administration History Discontinued Medications Clonidine (Clonidine Hcl 0.1 Mg Tablet) 0.1 mg PO X1 ONE Stop: 11/07/24 18:26 Last Admin: 11/07/24 18:32 Dose: 0.1 mg Documented By: LEIGHA Diphenhydramine HCl (Diphenhydramine Inj 50 Mg/Ml Vial) 50 mg IV X1 ONE Stop: 11/07/24 18:26 Last Admin: 11/07/24 18:34 Dose: 50 mg Documented By: LEIGHA Sodium Chloride (Ns) 1,000 mls @ 999 mls/hr IV .Q1H1M ONE Stop: 11/07/24 19:53 Last Infusion: 11/07/24 20:57 Dose: Infused Documented By: Admin: 11/07/24 19:35 Dose: 999 mls/hr Documented By: KAMILAH Sodium Chloride (Ns) 500 mls @ 125 mls/hr IV .Q4H ONE Stop: 11/07/24 23:31 Last Admin: 11/07/24 20:43 Dose: Not Given Documented By: KAMILAH Non-Admin Reason: Discontinued Magnesium Sulfate (Magnesium Sulfate Ivpb) 2 gm in 50 mls @ 25 mls/hr IV X1 ONE Stop: 11/07/24 21:32 Last Infusion: 11/07/24 21:39 Dose: Infused Documented By: Admin: 11/07/24 19:52 Dose: 25 mls/hr Documented By: KAMILAH Ketorolac Tromethamine (Ketorolac Inj 30 Mg/Ml Vial) 15 mg IVP X1 ONE Stop: 11/07/24 19:32 Last Admin: 11/07/24 19:35 Dose: 15 mg Documented By: KAMILAH Lorazepam (Lorazepam 2 Mg/Ml Vial) 1 mg IVP X1 ONE Stop: 11/07/24 18:07 Last Admin: 11/07/24 18:21 Dose: 1 mg Documented By: LEIGHA Lorazepam (Lorazepam 2 Mg/Ml Vial) 2 mg IVP X1 ONE Stop: 11/07/24 20:32 Last Admin: 11/07/24 20:40 Dose: 2 mg Documented By: KAMILAH Methadone HCl (Methadone Hcl 10 Mg Tablet) 40 mg PO X1 ONE Stop: 11/07/24 19:53 Last Admin: 11/07/24 21:40 Dose: Not Given Documented By: KAMILAH Non-Admin Reason: Nausea Metoclopramide HCl (Metoclopramide Inj 5 Mg/Ml Vial 2 Ml) 5 mg IVP X1 ONE; Protocol Stop: 11/07/24 20:32 Last Admin: 11/07/24 20:39 Dose: 5 mg Documented By: KAMILAH Ondansetron HCl (Ondansetron Inj 2 Mg/Ml Inj 2 Ml) 4 mg IV X1 ONE; Protocol Stop: 11/07/24 18:07 Last Admin: 11/07/24 18:20 Dose: 4 mg Documented By: LEIGHA Scopolamine (Scopolamine 1 Mg Tdsy) 1 mg TOP X1 ONE Stop: 11/07/24 18:26 Last Admin: 11/07/24 18:36 Dose: 1 mg Documented By: LEIGHA Zofran 4 mg, scopolamine patch, lorazepam, NS 1L, clonidine 0.1 mg, diphehydramine 50 mg, metoclopramide 5 mg Consultations Consultation(s) initiated? (list below): No Diagnosis Differential Diagnosis ED Complaint MDM: cannabis hyperemesis syndrome, gastritis, GERD, opioid withdrawal Most likely diagnosis given after review of the tests above:: Cannabis hyperemesis syndrome Admission Indicated Admission indicated?: not indicated Explain why admission is indicated or not indicated:: Patient is clinically and hemodynamically stable, can be safely discharged home and follow up with PCP outpatient. Patient needs to stay away from [facility]. Admission Request Was there a request for admission?: No Disposition Plan Disposition Plan: Discharge Discharge Attestation Discharge Attestation: The patient and all family members were given an opportunity to ask questions and understood the discharge instructions. Discharge instructions specifically effects, indications for sooner follow up or return to the emergency department, and the expected course of current diagnosis. Patient condition: Stable Medical Decision Making Differential Diagnosis Differential Diagnosis: cannabis hyperemesis syndrome, gastritis, GERD, opioid withdrawal Lab Data 11/07/24 18:30 11/07/24 18:30 Labs: Lab Results 11/07/24 11/07/24 11/07/24 Range/Units 18:30 21:42 21:57 WBC 19.4 H (3.6-11.0) Thou/mm3 RBC 5.41 H (4.00-5.20) Miln/mm3 Hgb 15.7 (12.0-16.0) g/dL Hct 43.9 (36.0-46.0) % MCV 81 (80-100) fL MCH 29.0 (25.0-35.0) pg MCHC 35.8 (31.0-37.0) g/dl RDW Std Deviation 42.2 (36.4-46.3) fL Plt Count 326 (140-440) Thou/mm3 Neut % (Auto) 92 H (37-80) % Lymph % (Auto) 4 L (10-50) % [place] % (Auto) 3 (0-12) % Eos % (Auto) 0 (0-10) % Baso % (Auto) 0 (0-2.5) % Neut # (Auto) 17.9 H (1.8-7.7) Thou/mm3 Lymph # (Auto) 0.8 L (1.0-4.8) Thou/mm3 [place] # (Auto) 0.6 (0.0-0.8) Thou/mm3 Eos # (Auto) 0.0 (0.0-0.5) Thou/mm3 Baso # (Auto) 0.0 (0.0-0.2) Thou/mm3 Immature Gran # (Auto) 0.06 H (0.00-0.00) Thou/mm3 Absolute Nucleated RBC 0.00 (0.00-0.00) Thou/mm3 Immature Gran % 0 (0-0) % Nucleated RBC % 0 (0) /100 WBC Sodium 144 (136-145) mMol/L Potassium 4.1 (3.4-5.1) mMol/L Chloride 111 H (98-107) mMol/L Carbon Dioxide 19.2 L (20.0-31.0) mMol/L Anion Gap 14 (7-16) BUN 14 (9-23) mg/dL Creatinine 0.8 (0.6-1.3) mg/dL Estim Creat Clear Calc 96.3 (>60) mL/min eGFR > 60 (60 - ) See Note BUN/Creatinine Ratio 18 (12-20) Ratio Glucose 155 H (74-106) mg/dL Calculated Osmolality 290 (275-295) Calcium 9.6 (8.3-10.6) mg/dL Corrected Calcium 9.6 (8.5-10.1) mg/dL Magnesium 1.3 L (1.6-2.6) mg/dL Total Bilirubin 0.8 (0.3-1.2) mg/dL AST 18 (0-34) U/L ALT 12 (10-49) U/L Alkaline Phosphatase 86 (46-116) U/L Total Protein 6.8 (5.7-8.2) gm/dL Albumin 4.3 (3.5-5.0) gm/dL Globulin 2.5 (2.3-3.5) gm/dL Albumin/Globulin Ratio 1.7 (1.2-2.2) HCG, Qual Negative Ur Collection Type Clean Catch Urine Color Yellow (Lt Yel-Yel) Urine Clarity Clear (Clear/Hazy) Urine pH 8.0 H (5.0-7.0) Ur Specific [place] 1.025 (1.001-1.035) Urine Protein Trace (Neg - Trace) Urine Glucose (UA) Negative (Negative) Urine Ketones 2+ A (Negative) Urine Blood Negative (Negative) Urine Nitrite Negative (Negative) Urine Bilirubin Negative (Negative) Urine Urobilinogen (Auto) Negative (0.0-1.0) mg/dL Ur Leukocyte Esterase Negative (Negative) Urine RBC 8 H (0-3) /hpf Urine WBC 1 (0-5) /hpf Ur Squamous Epith Cells 5 (0-5) /hpf Urine Bacteria None (None) Urine HCG, Qual Cancelled Urine Opiates Screen (Negative) Urine Fentanyl Screen (Negative) Ur Barbiturates Screen (Negative) U Amphetamin/Meth Scrn (Negative) U Benzodiazepines Scrn (Negative) U Cocaine Metab Screen (Negative) U Marijuana (THC) Screen (Negative) Ethyl Alcohol < 3.0 (0-10.0) mg/dL 11/07/24 Range/Units 21:57 WBC (3.6-11.0) Thou/mm3 RBC (4.00-5.20) Miln/mm3 Hgb (12.0-16.0) g/dL Hct (36.0-46.0) % MCV (80-100) fL MCH (25.0-35.0) pg MCHC (31.0-37.0) g/dl RDW Std Deviation (36.4-46.3) fL Plt Count (140-440) Thou/mm3 Neut % (Auto) (37-80) % Lymph % (Auto) (10-50) % [place]inger % (Auto) (0-12) % Eos % (Auto) (0-10) % Baso % (Auto) (0-2.5) % Neut # (Auto) (1.8-7.7) Thou/mm3 Lymph # (Auto) (1.0-4.8) Thou/mm3 [place] # (Auto) (0.0-0.8) Thou/mm3 Eos # (Auto) (0.0-0.5) Thou/mm3 Baso # (Auto) (0.0-0.2) Thou/mm3 Immature Gran # (Auto) (0.00-0.00) Thou/mm3 Absolute Nucleated RBC (0.00-0.00) Thou/mm3 Immature Gran % (0-0) % Nucleated RBC % (0) /100 WBC Sodium (136-145) mMol/L Potassium (3.4-5.1) mMol/L Chloride (98-107) mMol/L Carbon Dioxide (20.0-31.0) mMol/L Anion Gap (7-16) BUN (9-23) mg/dL Creatinine (0.6-1.3) mg/dL Estim Creat Clear Calc (>60) mL/min eGFR (60 - ) See Note BUN/Creatinine Ratio (12-20) Ratio Glucose (74-106) mg/dL Calculated Osmolality (275-295) Calcium (8.3-10.6) mg/dL Corrected Calcium (8.5-10.1) mg/dL Magnesium (1.6-2.6) mg/dL Total Bilirubin (0.3-1.2) mg/dL AST (0-34) U/L ALT (10-49) U/L Alkaline Phosphatase (46-116) U/L Total Protein (5.7-8.2) gm/dL Albumin (3.5-5.0) gm/dL Globulin (2.3-3.5) gm/dL Albumin/Globulin Ratio (1.2-2.2) HCG, Qual Ur Collection Type Urine Color (Lt Yel-Yel) Urine Clarity (Clear/Hazy) Urine pH (5.0-7.0) Ur Specific [place] (1.001-1.035) Urine Protein (Neg - Trace) Urine Glucose (UA) (Negative) Urine Ketones (Negative) Urine Blood (Negative) Urine Nitrite (Negative) Urine Bilirubin (Negative) Urine Urobilinogen (Auto) (0.0-1.0) mg/dL Ur Leukocyte Esterase (Negative) Urine RBC (0-3) /hpf Urine WBC (0-5) /hpf Ur Squamous Epith Cells (0-5) /hpf Urine Bacteria (None) Urine HCG, Qual Negative Urine Opiates Screen Positive A (Negative) Urine Fentanyl Screen Negative (Negative) Ur Barbiturates Screen Negative (Negative) U Amphetamin/Meth Scrn Negative (Negative) U Benzodiazepines Scrn Negative (Negative) U Cocaine Metab Screen Negative (Negative) U Marijuana (THC) Screen Positive A (Negative) Ethyl Alcohol (0-10.0) mg/dL Discharge Plan Plan Patient Disposition: HOME (Self Care) Patient condition on transfer: Stable Prescriptions/Referrals Prescriptions/Med Rec: New metoclopramide HCl [Reglan] 5 mg tablet 5 mg PO Q8H PRN (Reason: nausea and vomiting) Qty: 14 0RF ondansetron 4 mg tablet,disintegrating 4 mg PO Q8H PRN (Reason: nausea and vomiting) Qty: 14 0RF promethazine 25 mg tablet 25 mg PO Q6H PRN (Reason: nausea and vomiting) Qty: 14 0RF No Action quetiapine 50 mg tablet extended release 24 hr 50 mg PO DAILY Patient Comments: TAKE 1 TABLET BY MOUTH EVERY DAY IN THE EVENING pantoprazole [Protonix] 40 mg tablet,delayed release (DR/EC) 40 mg PO QDAY Qty: 14 0RF ibuprofen 600 mg tablet 600 mg PO Q6H Qty: 30 0RF famotidine 10 mg tablet 10 mg PO QDAY Qty: 30 0RF ondansetron 4 mg tablet,disintegrating 4 mg PO Q8H Qty: 14 0RF metoclopramide HCl [Reglan] 10 mg tablet 10 mg PO Q6H PRN (Reason: nausea and vomiting) Qty: 30 0RF promethazine 12.5 mg suppository 12.5 mg WA Q8HR PRN (Reason: nausea and vomiting) Qty: 12 0RF famotidine [Pepcid] 20 mg tablet 20 mg PO BID Qty: 10 0RF alum-mag hydroxide-simeth [Advanced Antacid-Antigas] 200-200-20 mg/5 mL suspension 10 ml PO QID PRN (Reason: Gastritis) Qty: 3000 0RF Rx Instructions: administer between meals and at bedtime promethazine 25 mg suppository 25 mg WA Q6H PRN (Reason: nausea and vomiting) Qty: 12 0RF hydrocodone-acetaminophen 5-325 mg tablet 1 tab PO BID MDD 10 PRN (Reason: pain) Qty: 6 0RF ibuprofen 600 mg tablet 600 mg PO Q6H Qty: 30 0RF Referrals: Sameer Maddox MD [Primary Care Provider] - In 1 week Problem List Clinical Impression: Intractable nausea and vomiting, Cannabinoid hyperemesis syndrome Patient/Caregiver Discharge Instructions Education Materials: Self-Care for Vomiting and Diarrhea, ED Marijuana Abuse, ED Vomiting (Adult) Additional Instructions: Discharge Instructions from Dr. Aquino printed for you: 1. After extensive evaluation, there is no emergency such as appendicitis needing urgent surgery. 2. Try Zofran and Reglan and Phenergan for vomiting. No marijuana usage. Clear liquid diet for 24 hours and advance slowly as tolerated. For good hydration, increase oral fluid and maintain clear urine. If dark or yellow, increase oral fluid. 3. See a private doctor on 11/10/2024 for recheck and further care. Ask to review all test results and official radiology reports, to make sure you receive all necessary follow-ups and monitoring, including the CT scan that recommended ultrasound to better assess your liver. To make sure there is no serious intra-abdominal condition, ask for help with more investigation not available here in the ER. 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 4. Seek immediate medical care with worsening or with any concerns. Print Language: Frisian Stand Alone Forms: Tereza Award Info., Patient Portal Info Letter
[2024-11-07] MEDS: cloNIDine HCL 0.1 MG TABLET PO (18:32)
[2024-11-07] MEDS: DiphenhydrAMINE INJ 50 MG/ML VIAL IV (18:34)
[2024-11-07] MEDS: SCOPOLAMINE 1 MG TDSY TOP (18:36)
[2024-11-07 18:47] LABS: Basophils % (Auto) 0 % (0-2.5); Eosinophils % (Auto) 0 % (0-10); Hematocrit 43.9 % (36.0-46.0); Hemoglobin 15.7 g/dL (12.0-16.0); Immature Granulocytes % (Auto) 0 % (0-0); Immature Granulocytes Auto 0.06 Thou/mm3 (0.00-0.00); Lymphocytes # (Auto) 0.8 Thou/mm3 (1.0-4.8); Lymphocytes % (Auto) 4 % (10-50); Mean Corpuscular HGB Conc 35.8 g/dl (31.0-37.0); Mean Corpuscular Volume 81 fL (80-100); Monocytes # (Auto) 0.6 Thou/mm3 (0.0-0.8); Monocytes % (Auto) 3 % (0-12); Neutrophils # (Auto) 17.9 Thou/mm3 (1.8-7.7); Neutrophils % (Auto) 92 % (37-80); Nucleated Red Blood Cell % 0 /100 WBC (0); Platelet Count 326 Thou/mm3 (140-440); RDW Standard Deviation 42.2 fL (36.4-46.3); Red Blood Count 5.41 Miln/mm3 (4.00-5.20); White Blood Count 19.4 Thou/mm3 (3.6-11.0)
[2024-11-07 19:14] LABS: Alanine Aminotransferase 12 U/L (10-49); Albumin, Serum 4.3 gm/dL (3.5-5.0); Albumin/Globulin Ratio 1.7 (1.2-2.2); Alcohol, Blood Medical < 3.0 mg/dL (0-10.0); Alkaline Phosphatase 86 U/L (46-116); Anion Gap 14 (7-16); Aspartate Amino Transferase 18 U/L (0-34); BUN/Creatinine Ratio 18 Ratio (12-20); Bilirubin,Total 0.8 mg/dL (0.3-1.2); Blood Urea Nitrogen 14 mg/dL (9-23); Calcium 9.6 mg/dL (8.3-10.6); Calcium (Corrected) 9.6 mg/dL (8.5-10.1); Carbon Dioxide 19.2 mMol/L (20.0-31.0); Chloride 111 mMol/L (98-107); Creatinine (Component) 0.8 mg/dL (0.6-1.3); Estimated Creatinine Clearance 96.3 mL/min (>60); Globulin 2.5 gm/dL (2.3-3.5); Glucose 155 mg/dL (74-106); Magnesium 1.3 mg/dL (1.6-2.6); Osmolality,Calculated 290 (275-295); Potassium 4.1 mMol/L (3.4-5.1); Sodium 144 mMol/L (136-145); Total Protein 6.8 gm/dL (5.7-8.2); eGFR > 60 See Note
[2024-11-07] MEDS: KETOROLAC INJ 30 MG/ML VIAL 15 MG IVP (19:35)
[2024-11-07] MEDS: SODIUM CHLORIDE 0.9% 1000 ML 1,000 ML 999 ML IV (19:35)
--- NOTE | 2024-11-07 19:46 | XR_ITS ---
Examination: AP chest single view Technique one AP portable upright chest single view Exam date and time: November 17, 20242010 hrs. Indications: Onset abdominal pain today Findings: Normal heart size Lungs are clear. Osseous structures are intact Impression: No active disease
--- NOTE | 2024-11-07 19:48 | XR_ITS ---
Examination: CT abdomen and pelvis without contrast. Coronal 3-D reconstructions. Sagittal 2-D reconstructions. Date and time of exam:November 17, 2024 1120 hrs. Indications: Generalized abdominal pain today Comparison: December 16, 2022 CTDI: vol (mGy): 6.52 DLP: (mGycm): 349 Technique: Axial images of the abdomen have been obtained, 3 mm slice thickness Intravenous contrast material has not been administered. Low dose protocols were performed. One or more of the following dose reduction techniques were used; automated exposure control, adjustment of the mA and/or KV according to patient size, use of iterative reconstruction technique. Findings: Again noted 21 mm low-density posterior right lobe liver lesion No gallstones Spleen is not enlarged 2 mm upper pole left renal calculus, no hydronephrosis or ureteral calculi Aorta normal size No bowel obstruction No pericecal inflammatory change, normal appendix No pelvic mass No bladder mass or bladder calculi Moderate disc narrowing L5-S1 Impression: Recommend hepatic sonography to further assess low-density right lobe liver lesion 2 mm nonobstructing upper pole left renal calculus, no hydronephrosis or ureteral calculi Normal appendix No bowel obstruction or diverticulitis
--- NOTE | 2024-11-07 19:48 | EKG_ITS ---
[facility] Test Date: 2024-11-07 Pat Name: FERNIE MENDOZA Department: Room: - Gender: Female [employer]: : 1995 Requested By: Cornelio Haro Order Number: [id number] Reading MD: Cornelio Haro Measurements Intervals [place] Rate: 79 P: 63 SC: 175 QRS: 61 QRSD: 98 T: 34 QT: 400 QTc: 460 Interpretive Statements SINUS RHYTHM LOW QRS VOLTAGE IN PRECORDIAL LEADS [QRS DEFLECTION < 1.0 mV IN CHEST LEADS] POSSIBLE RIGHT VENTRICULAR CONDUCTION DELAY [RSR (QR) IN V1/V2] No previous ECG available for comparison /store/S0/[id number].pdf
[2024-11-07] MEDS: Magnesium Sulfate 2 GM Ivpb 2 GM/50 ML BAG IV (19:52)
[2024-11-07] MEDS: METOCLOPRAMIDE INJ 5 MG/ML VIAL 2 ML IVP (20:39)
[2024-11-07] MEDS: LORazepam 2 MG/ML VIAL IVP (20:40)
[2024-11-07 22:23] LABS: Collection Type, Urine Clean Catch
[2024-11-07 22:28] LABS: HCG,Qualitative Serum Negative
[2024-11-07 22:47] LABS: Bilirubin,Urine Negative (Negative); Blood,Urine Negative (Negative); Clarity,Urine Clear (Clear/Hazy); Color,Urine Yellow (Lt Yel-Yel); Glucose, Urine Negative (Negative); Ketones,Urine 2+ (Negative); Leukocyte Esterase,Urine Negative (Negative); Nitrite,Urine Negative (Negative); Protein,Urine Trace (Neg - Trace); RBC,Urine 8 /hpf (0-3); Specific Gravity,Urine 1.025 (1.001-1.035); Squamous Epithelial Cell,Urine 5 /hpf (0-5); Urobilinogen,Urine Negative mg/dL (0.0-1.0); WBC,Urine 1 /hpf (0-5)
[2024-11-07 22:48] LABS: HCG Qualitative,Urine Negative
[2024-11-07 23:04] LABS: Amphetamine/Methamp Scrn,U Negative (Negative); Barbiturate Screen,Urine Negative (Negative); Benzodiazepines Screen,Urine Negative (Negative); Benzoylecgonine Screen, Ur Negative (Negative); Fentanyl Screen,Urine Negative (Negative); Opiate Screen,Urine Positive (Negative); THC Screen,Urine Positive (Negative)
[2024-11-08] VITALS: BP 102/54; PULSE 83; RESP 29; O2SAT 93
[2024-11-08 01:00] VITALS: BP 127/77; PULSE 83; RESP 19; O2SAT 99
== END 2024-11-08 01:12 | disposition home or self-care (01) ==
PROVIDERS: Student in an Organized Health Care Education/Training Program; Emergency Provider Emergency Medicine; PCP Family Medicine
DX: R11.2 Nausea with vomiting, unspecified (principal); F12.90 Cannabis use, unspecified, uncomplicated; R10.13 Epigastric pain; R94.31 Abnormal electrocardiogram [ECG] [EKG]
CPT/HCPCS: 36415; 71045; 74176; 80053; 80307; 80320; 81001; 81025; 83735; 84703; 85025; 93005; 96365; 96366; 96375; 96376; 99284; J1200; J1885; J2060; J2405; J2765; J3475; J7030; A9270; G0480

== ENCOUNTER 2025-04-11 01:03 | Emergency (ER) | payer MEDICAID, SELFPAY ==
[2025-04-11 01:04] VITALS: BMI 23.0
[2025-04-11 01:45] VITALS: BP 131/84; PULSE 111; RESP 19; TEMP 36.6; O2SAT 96
[2025-04-11] MEDS: METHADONE HCL 10 MG TABLET PO (02:08)
[2025-04-11 02:16] VITALS: RESP 16
--- NOTE | 2025-04-11 04:15 | PD.EDANX ---
ED Anxiety RME/HPI General Chief Complaint: General Adult/Misc Complain Stated Complaint: BODYACHES Time Seen by Provider: 04/11/25 02:00 Arrival date/time: 04/11/25 01:03 29F with history of psych/drug use presents to ED with body tremors/aches since she went cold turkey from her opioid detox program. Patient was on 40 mg methadone from local [facility] with [facility]. Limitations: no limitations Related Data Home Medications ?Medication ?Instructions ?Recorded ?Confirmed quetiapine 50 mg tablet,extended 50 mg PO DAILY 03/09/21 03/09/21 release 24 hr Previous Rx's ?Medication ?Instructions ?Recorded pantoprazole 40 mg tablet,delayed 40 mg PO QDAY #14 tabs 12/16/22 release (Protonix) ibuprofen 600 mg tablet 600 mg PO Q6H #30 tabs 03/17/24 famotidine 10 mg tablet 10 mg PO QDAY #30 tabs 03/23/24 ondansetron 4 mg disintegrating 4 mg PO Q8H #14 tabs 03/23/24 tablet metoclopramide HCl 10 mg tablet 10 mg PO Q6H PRN nausea and 05/01/24 (Reglan) vomiting #30 tabs promethazine 12.5 mg rectal 12.5 mg TN Q8HR PRN nausea and 05/03/24 suppository vomiting #12 ea aluminum-mag hydroxide-simethicone 10 ml PO QID PRN Gastritis #3,000 08/08/24 200 mg-200 mg-20 mg/5 mL oral susp mL (Advanced Antacid-Antigas) famotidine 20 mg tablet (Pepcid) 20 mg PO BID Gastritis #10 tabs 08/08/24 promethazine 25 mg rectal 25 mg TN Q6H PRN nausea and 08/08/24 suppository vomiting #12 ea hydrocodone 5 mg-acetaminophen 325 1 tab PO BID PRN pain #6 tabs 09/23/24 mg tablet ibuprofen 600 mg tablet 600 mg PO Q6H #30 tabs 09/23/24 metoclopramide HCl 5 mg tablet 5 mg PO Q8H PRN nausea and 11/08/24 (Reglan) vomiting #14 tabs ondansetron 4 mg disintegrating 4 mg PO Q8H PRN nausea and 11/08/24 tablet vomiting #14 tabs promethazine 25 mg tablet 25 mg PO Q6H PRN nausea and 11/08/24 vomiting #14 tabs Allergies Allergy/AdvReac Type Severity Reaction Status Date / Time No Known Allergies Allergy Verified 04/11/25 01:03 Review of Systems Review of Systems Systems Reviewed: All systems reviewed, normal except as documented Constitutional Constitutional: Reports system reviewed and no additional complaints, except as documented, Denies fever(s) and Denies headache(s) ENT Ears, Nose, Mouth, and Throat: Denies disequilibrium and Denies headache(s) Cardiovascular Cardiovascular: Reports system reviewed and no additional complaints, except as documented, Denies chest pain and Denies dyspnea Respiratory Respiratory: Reports system reviewed and no additional complaints, except as documented, Denies cough and Denies dyspnea Gastrointestinal Gastrointestinal: Reports system reviewed and no additional complaints, except as documented, Denies abdominal pain, Denies nausea and Denies vomiting Neurologic Neurologic: Reports system reviewed and no additional complaints, except as documented, Reports as per HPI, Denies confusion, Denies disequilibrium, Denies headache(s) and Reports tremor(s) Psychiatric Psychiatric: Denies confusion Past Medical History Past Medical History NEUROLOGIC: Negative Neurological Disorders CARDIAC: Negative Cardiac Disorders or Congestive Heart Failure RESPIRATORY: Negative Chronic Obstructive Pulmonary Disease (COPD) or Asthma GASTROINTESTINAL: Negative Gastrointestinal Disorders GENITOURINARY: Positive Genitourinary Disorders; Negative Renal Disease REPRODUCTIVE: Negative Breast Cancer MUSCULOSKELETAL: Positive Musculoskeletal Disorders ENDOCRINE: Negative Endocrine Disorders, Diabetes Mellitus Type 1 or Diabetes Mellitus Type 2 HEMATOLOGIC: Negative Blood Disorders or Sickle Cell Disease PSYCHO/SOCIAL: Positive Depression, Anxiety and Depression OTHER HISTORY: Negative Autoimmune Disease, Blood Transfusions, Anesthesia Reactions, Organ Transplant, MRSA, Clostridium Difficile or Breast Cancer Family History FAMILY HISTORY: Positive Family Psychiatric Problems, Family Respiratory Disorders and Family Cancer; Negative Family Cardiac Disorders, Family Gastrointestinal Problems, Family Surgery or Family Anesthesia Reaction Surgical History SURGICAL: Negative Cardiac Surgery, Endocrine Surgery, Ear Surgery, Abdominal Surgery, Nephrectomy, Joint Replacement, Neurologic Surgery, Section or Organ Transplant Social History SMOKING STATUS: Current every day smoker ED Exam General Limitations: Present no limitations General appearance: Present alert, in no apparent distress and anxious Head Head exam: Present atraumatic Eye Eye exam: Present normal appearance, PERRL and EOMI ENT ENT exam: Present normal exam, normal oropharynx and mucous membranes moist Neck Neck exam: Present normal inspection, full ROM and trachea midline Chest Chest inspection: Present normal inspection and symmetric chest wall rise Respiratory Respiratory exam: Present normal lung sounds bilaterally Cardiovascular Cardiovascular exam: Present regular rate, normal rhythm and normal heart sounds Abdominal Exam Abdominal exam: Present soft and normal bowel sounds Extremities Exam Extremities exam: Present normal inspection and full ROM Back Exam Back exam: Present normal inspection and full ROM Neurological Exam Neurological exam: Present alert, oriented X3 and CN II-XII intact Psychiatric Psychiatric exam: Present normal affect and normal mood Skin Skin exam: Present warm, dry, intact and normal color Course Quality Measures none Orders Category Date Time Status Methadone Med 04/11/25 02:01 Discontinued 10 mg PO X1 ONE Vital Signs Vital signs: Vital Signs Temperature 98 F 04/11/25 01:45 Pulse Rate 111 H 04/11/25 01:45 Respiratory Rate 19 04/11/25 01:45 Blood Pressure 131/84 H 04/11/25 01:45 Pulse Oximetry (%) 96 04/11/25 01:45 Oxygen Delivery Method Room Air 04/11/25 01:45 Anxiety MDM Narrative MDM Narrative: 29F with history of psych/drug use presents to ED with body tremors/aches since she went cold turkey from her opioid detox program. Patient was on 40 mg methadone from local [facility] with [facility]. Physical exam reveals anxious/restless female. Patient is afebrile and alert. Meds and correctional counselor/case manager given. Patient data External records reviewed:: [facility] previous records Clinical information provided by:: patient Social determinants that could affect healthcare access:: mental health Patient has the following chronic illnesses:: psych/drug How is presenting disease/condition affected by chronic disease/condition?: exacerbated by Evaluation data The following diagnostics were reviewed and interpreted by me:: other (specify) (none) Lab and/or radiology exams considered but not ordered:: not ordered Interpretation Summary: n/a Medications / Prescriptions Medications or Prescriptions considered but not ordered:: ordered Medication administrations:: Medication Administration History Discontinued Medications Methadone HCl (Methadone Hcl 10 Mg Tablet) 10 mg PO X1 ONE Stop: 04/11/25 02:02 Last Admin: 04/11/25 02:08 Dose: 10 mg Documented By: CVL Consultations Consultation(s) initiated? (list below): No Diagnosis Differential diagnosis anxiety: hyperventilation, panic disorder, acute anxiety and other (opioid withdrawal) Most likely diagnosis given after review of the tests above:: opioid withdrawal Admission Indicated Admission indicated?: not indicated Admission Request Was there a request for admission?: No Disposition Plan Disposition Plan: Discharge Discharge Attestation Discharge Attestation: The patient and all family members were given an opportunity to ask questions and understood the discharge instructions. Discharge instructions specifically effects, indications for sooner follow up or return to the emergency department, and the expected course of current diagnosis. Patient condition: Stable Discharge Plan Plan Patient Disposition: HOME (Self Care) Discharge Disposition comment: Stable Prescriptions/Referrals Prescriptions/Med Rec: No Action quetiapine 50 mg tablet extended release 24 hr 50 mg PO DAILY Patient Comments: TAKE 1 TABLET BY MOUTH EVERY DAY IN THE EVENING metoclopramide HCl [Reglan] 5 mg tablet 5 mg PO Q8H PRN (Reason: nausea and vomiting) Qty: 14 0RF ondansetron 4 mg tablet,disintegrating 4 mg PO Q8H PRN (Reason: nausea and vomiting) Qty: 14 0RF promethazine 25 mg tablet 25 mg PO Q6H PRN (Reason: nausea and vomiting) Qty: 14 0RF pantoprazole [Protonix] 40 mg tablet,delayed release (DR/EC) 40 mg PO QDAY Qty: 14 0RF ibuprofen 600 mg tablet 600 mg PO Q6H Qty: 30 0RF famotidine 10 mg tablet 10 mg PO QDAY Qty: 30 0RF ondansetron 4 mg tablet,disintegrating 4 mg PO Q8H Qty: 14 0RF metoclopramide HCl [Reglan] 10 mg tablet 10 mg PO Q6H PRN (Reason: nausea and vomiting) Qty: 30 0RF promethazine 12.5 mg suppository 12.5 mg TN Q8HR PRN (Reason: nausea and vomiting) Qty: 12 0RF famotidine [Pepcid] 20 mg tablet 20 mg PO BID Qty: 10 0RF alum-mag hydroxide-simeth [Advanced Antacid-Antigas] 200-200-20 mg/5 mL suspension 10 ml PO QID PRN (Reason: Gastritis) Qty: 3000 0RF Rx Instructions: administer between meals and at bedtime promethazine 25 mg suppository 25 mg TN Q6H PRN (Reason: nausea and vomiting) Qty: 12 0RF hydrocodone-acetaminophen 5-325 mg tablet 1 tab PO BID MDD 10 PRN (Reason: pain) Qty: 6 0RF ibuprofen 600 mg tablet 600 mg PO Q6H Qty: 30 0RF Problem List Clinical Impression: Opioid withdrawal Patient/Caregiver Discharge Instructions Education Materials: ED Opioid Withdrawal Additional Instructions: Please follow-up with PCP within 24-48 hours and return immediately if symptoms worsen. Make sure to follow-up with [facility]. Print Language: Romansh Stand Alone Forms: Patient Portal Info Letter PA/ADMISSIONS DEAN Supervising Physician PA/ADMISSIONS DEAN Supervising Physician: Dr. Garcia
== END 2025-04-11 02:16 | disposition home or self-care (01) ==
LOC: SERX 07:03
PROVIDERS: Emergency Provider Emergency Medicine; PCP Family Medicine
DX: F11.23 Opioid dependence with withdrawal (principal)
CPT/HCPCS: 99283; A9270